=== PATIENT | female | born 1975 | race Caucasian/White ===

== ENCOUNTER 2016-03-16 10:37 | Emergency (ER) | payer MEDICAID ==
[2016-03-16 10:53] VITALS: BP 146/91; PULSE 84; RESP 16; TEMP 98; O2SAT 100
--- NOTE | 2016-03-16 11:19 | PD ---
HPI Chief Complaint: Pain: Acute or Chronic Time Seen by Provider: 11:05 Travel History International Travel<30 days: No Contact w/Intl Traveler<30days: No Traveled to known affect area: No History of Present Illness HPI Patient is a 40 year-old female who presented to emergency for evaluation of left foot pain. Specifically over the fourth and fifth metatarsals and fifth toe. Patient states she kicked something Clement night but is unsure the exact events do to being intoxicated. Patient states it's painful to move her toes, she denies any numbness or tingling or weakness. She has been ambulating on her left foot. She states that ice helps the pain. She wanted to make sure that nothing was broken because she is a runner. [facility] Past Medical History Medical History: Denies Significant Hx Diminished Hearing: No Tetanus Vaccination: Unknown Influenza Vaccination: No ?: Not LMP: 02/29/16 Past Surgical History Surgical History: No Previous Surgery Social History Alcohol Use: No Tobacco Use: No Substance Use: No Allergies-Medications (Allergen,Severity, Reaction): Coded Allergies: No Known Allergies (Unverified , 03/16/16) Reported Meds & Prescriptions Reported Meds & Active Scripts Active Ibuprofen 800 Mg Tab 800 Mg PO Q6HR PRN Review of Systems Except as stated in HPI: all other systems reviewed are Neg Musculoskeletal: Positive: Arthralgias, Limited ROM, Edema, Pain Skin: Positive Change in Pigmentation Physical Exam Narrative GENERAL: Well-nourished, well-developed patient. SKIN: Warm and dry. HEAD: Normocephalic. EYES: No scleral icterus. No injection or drainage. NECK: Supple, trachea midline. No JVD or lymphadenopathy. CARDIOVASCULAR: Regular rate and rhythm without murmurs, gallops, or rubs. RESPIRATORY: Breath sounds equal bilaterally. No accessory muscle use. GASTROINTESTINAL: Abdomen soft, non-tender, nondistended. MUSCULOSKELETAL: No cyanosis, mild edema and ecchymosis noted over the fourth and fifth MTP and fifth toe on the left foot. Positive pedal pulses, brisk less than 3 second capillary refill. Patient is able to move her toes, sensation is intact. BACK: Nontender without obvious deformity. No CVA tenderness. Data Data Last Documented VS Vital Signs Date Time Temp Pulse Resp B/P Pulse Ox O2 Delivery O2 Flow Rate FiO2 03/16/16 10:53 98.0 84 16 146/91 100 Room Air Orders Foot, Complete ([id number]) (03/16/16 ) MDM Medical Decision Making Medical Screen Exam Complete: Yes Emergency Medical Condition: Yes Interpretation(s) Last Impressions Foot X-Ray 03/16/16 0000 Signed Impressions: Service Date/Time: Wednesday, March 16, 2016 11:13 - CONCLUSION: Fracture base of proximal phalanx little toe. Oli Rodriguez MD Vital Signs Date Time Temp Pulse Resp B/P Pulse Ox O2 Delivery O2 Flow Rate FiO2 03/16/16 10:53 98.0 84 16 146/91 100 Room Air 03/16/16 10:53 84 16 Differential Diagnosis Contusion versus fracture versus sprain versus strain versus other Narrative Course Patient is a 40-year-old female who presents emergency for evaluation of left foot pain that occurred Thursday night when she kicked something. Patient is neurovascularly intact. Imaging ordered to rule out acute fracture. Imaging of the left foot revealed a Fracture base of proximal phalanx on the left fifth toe. Patient encouraged rest, ice, elevate extremity. She advised that she can lorenzo tape the toes together, she was offered a postop shoe however she states she is able to ambulate with her normal shoes. She was encouraged to follow-up with her primary doctor or a clinical staff educator. Additionally she can come back to emergency room for any new or worsening symptoms. Patient verbalized understanding of instructions. Patient stable for discharge. Diagnosis Primary Impression: Fracture, toe Qualified Code: S92.513A - Closed displaced fracture of proximal phalanx of lesser toe, unspecified laterality, initial encounter Referrals: Lead Designer Patient Instructions: General Instructions, Toe Fracture (DC) Additional Instructions: Follow-up with her primary doctor or a clinical staff educator Return to emergency department for any new or worsening symptoms Rest, ice, elevate extremity Take medications as directed Return to emergency department for any new or worsening symptoms Med/Other Pt SpecificInfo: Prescription(s) given Scripts Ibuprofen 800 Mg Kob803 Mg PO Q6HR PRN (PAIN) #40 TAB Ref 0 Prov:Marcella Peterson 03/16/16 Disposition: 01 DISCHARGE HOME Condition: Stable Marcella Peterson Mar 16, 2016 11:19
--- NOTE | 2016-03-16 11:34 | RADHPO ---
EXAM DATE/TIME: 03/16/2016 11:13 [facility] COMPARISON: No previous studies available for comparison. INDICATIONS : Patient states kicked something, complains of bruising and pain of left foot, 5th digit. MEDICAL HISTORY : None. SURGICAL HISTORY : ENCOUNTER: Initial ACUITY: 3 days PAIN SCORE: 10/10 LOCATION: Left foot, 5th digit FINDINGS: Three view examination of the left foot demonstrates minimally displaced fracture along the base of the proximal phalanx little toe. Soft tissue swelling. CONCLUSION: Fracture base of proximal phalanx little toe. Oli Rodriguez MD on March 16, 2016 at 11:31 Board Certified Radiologist. This report was verified electronically.
[2016-03-16] MEDS ORDERED: IBUP800T23 PO (11:46)
== END 2016-03-16 11:53 | disposition home or self-care (01) ==
LOC: PHEFT 10:37
DX: S92.513A Displaced fracture of proximal phalanx of unspecified lesser toe(s), initial encounter for closed fracture (principal); X58.XXXA Exposure to other specified factors, initial encounter; Y99.8 Other external cause status
CPT/HCPCS: 73630; 99283

== ENCOUNTER 2017-07-30 13:59 | Emergency (ER) | payer MEDICAID ==
[~2017-07-30] VITALS: Ht 162.6 cm; Wt 70.0 kg
[~2017-07-30 13:59] MED LIST: IBUP1TAB7 PO
[2017-07-30 14:01] VITALS: BP 119/74; PULSE 56; RESP 16; TEMP 97.7; O2SAT 100
--- NOTE | 2017-07-30 14:15 | PD ---
HPI Chief Complaint: Injury Time Seen by Provider: 14:11 Travel History International Travel<30 days: No Contact w/Intl Traveler<30days: No Traveled to known affect area: No History of Present Illness HPI 41-year-old female with no significant medical history presents emergency department for evaluation right wrist pain 2 days. Patient states that it anchor fell onto her right wrist 2 days ago. She has been having pain with movement in the right wrist and extension of the right thumb exacerbates pain in the wrist since the incident. Denies any alterations in sensation. She does have no limitation range of motion except for that it is painful. She has no other symptoms to report at this time. [facility] Past Medical History Medical History: Denies Significant Hx Diminished Hearing: No ?: Not LMP: three weeks ago Social History Alcohol Use: No Tobacco Use: No Substance Use: No Allergies-Medications (Allergen,Severity, Reaction): Coded Allergies: No Known Allergies (Unverified Adverse Reaction, Unknown, 07/30/17) Reported Meds & Prescriptions Reported Meds & Active Scripts Active No Active Prescriptions or Reported Medications Review of Systems Except as stated in HPI: all other systems reviewed are Neg Physical Exam Narrative GENERAL: Well-nourished, well-developed female patient in no acute distress SKIN: Focused skin assessment warm/dry. HEAD: Normocephalic. EYES: No scleral icterus. No injection or drainage. NECK: Supple, trachea midline. No JVD or lymphadenopathy. CARDIOVASCULAR: Regular rate and rhythm without murmurs, gallops, or rubs. RESPIRATORY: Breath sounds equal bilaterally. No accessory muscle use. EXTREMITY: There is no swelling, but there is tenderness of the right distal forearm and wrist. There is no obvious deformity. The skin is intact. Flexion and extension of the fingers is normal. The fingers are warm and well perfused. Sensation to light touch is intact in the hand. Data Data Last Documented VS Vital Signs Date Time Temp Pulse Resp B/P (MAP) Pulse Ox O2 Delivery O2 Flow Rate FiO2 07/30/17 14:01 97.7 56 16 119/74 (89) 100 Orders Orders Wrist, Complete ([id number]) (07/30/17 ) Support Splint (07/30/17 15:04) MDM Medical Decision Making Medical Screen Exam Complete: Yes Emergency Medical Condition: Yes Medical Record Reviewed: Yes Differential Diagnosis Contusion versus fracture versus sprain versus dislocation Narrative Course 41-year-old female presents emergency department for evaluation right wrist pain. There is no obvious deformity or limitation in range of motion. The extremity is neurovascularly intact. X-ray imaging confirms no acute bony abnormality. Patient is placed in a Velcro wrist splint. She is counseled on care and encouraged follow-up with primary care provider. She agrees to return immediately with acute worsening of symptoms. Diagnosis Primary Impression: Sprain of wrist, right Qualified Codes: S63.501A - Unspecified sprain of right wrist, initial encounter Referrals: Primary Care Physician Patient Instructions: General Instructions, Wrist Sprain (ED) Additional Instructions: Brace for support Elevate to reduce pain and swelling Ice to the affected area, 20 minutes on, 20 minutes off. Make sure there is a barrier between her skin on the ice Follow-up with a primary care provider Return immediately with acute worsening symptoms Med/Other Pt SpecificInfo: Prescription(s) given Scripts Ibuprofen (Ibuprofen) 800 Mg Tab 800 MG PO Q8H Y for Pain/Inflammation, #30 TAB 0 Refills Prov: Josephine Han 07/30/17 Disposition: 01 DISCHARGE HOME Condition: Stable Josephine Han Jul 30, 2017 14:15
--- NOTE | 2017-07-30 14:59 | RADRPT ---
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 CLINICAL DATA: This is the patient's initial encounter. Patient reports that signs and symptoms have been present for 4 - 6 days and indicates a pain score of 3/10. MEDICAL/SURGICAL HISTORY: None. None. COMPARISON: No prior exams available for comparison. FINDINGS: Bony structures are intact and in normal alignment. Joints are intact without dislocation or signifi cant arthropathy. Osseous density is normal. Soft tissues are unremarkable. No radiopaque foreign bodies seen. CONCLUSION: 1. No acute fracture or dislocation. Electronically signed by: Ketan Holley MD 07/30/2017 2:57 PM EDT
[2017-07-30] MEDS ORDERED: IBUP1TAB7 PO (15:08)
== END 2017-07-30 15:30 | disposition home or self-care (01) ==
LOC: PHEFT 13:59
DX: S63.501A Unspecified sprain of right wrist, initial encounter (principal); W20.8XXA Other cause of strike by thrown, projected or falling object, initial encounter
CPT/HCPCS: 73110; 99283; L3908